=== PATIENT | female | born 2000 | race African-American/Black ===

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

== ENCOUNTER 2023-03-06 16:08 | Emergency (ER) | payer MEDICAID, OTHER ==
[~2023-03-06] VITALS: Ht 162.6 cm; Wt 75.0 kg
[2023-03-06 16:24] VITALS: BP 129/83; PULSE 100; RESP 18; TEMP 98.1; O2SAT 100
[2023-03-06 17:10] LABS: CLARITY URINE CLEAR (CLEAR); COLOR URINE YELLOW (YELLOW); GLUCOSE URINE NEGATIVE (NEGATIVE); KETONES URINE 1+ (NEGATIVE); LEUKOCYTE ESTERASE URINE NEGATIVE (NEGATIVE); NITRITE URINE NEGATIVE (NEGATIVE); OCCULT BLOOD URINE NEGATIVE (NEGATIVE); PH URINE 5.5 (4.5-8.0); PROTEIN URINE TRACE (NEGATIVE); SPECIFIC GRAVITY URINE 1.033 (1.005-1.030)
[2023-03-06 17:31] LABS: BACTERIA URINE 2+; MUCUS URINE 1+ /lpf (< = 2+); RBC URINE 0-2 /hpf (0-2); SQUAMOUS EPITHELIAL CELL URINE 1+ /lpf (RARE/1+); WBC URINE 0-2 /hpf (0-2)
[2023-03-06] MEDS ORDERED: DOXY100T2 MT (18:12)
[2023-03-06] MEDS ORDERED: CEFTRIAXONE SODIUM 1 G/VIAL IM ONE (18:15)
== END 2023-03-06 19:12 | disposition home or self-care (01) ==
LOC: ER 16:08
DX: R30.0 Dysuria (principal); F41.9 Anxiety disorder, unspecified
CPT/HCPCS: 81003; 81025; 96372; 99283; J0696; Z7610

== ENCOUNTER 2024-04-28 14:13 | Emergency (ER) | payer MEDICAID, OTHER ==
[~2024-04-28] VITALS: Ht 162.6 cm; Wt 77.1 kg
[~2024-04-28 14:13] MED LIST: DOXY100T2 MT
[2024-04-28 14:25] VITALS: O2SAT 100
[2024-04-28 15:40] LABS: CLARITY URINE CLEAR (CLEAR); COLOR URINE YELLOW (YELLOW); GLUCOSE URINE NEGATIVE (NEGATIVE); KETONES URINE NEGATIVE (NEGATIVE); LEUKOCYTE ESTERASE URINE 1+ (NEGATIVE); NITRITE URINE NEGATIVE (NEGATIVE); OCCULT BLOOD URINE NEGATIVE (NEGATIVE); PROTEIN URINE NEGATIVE (NEGATIVE); SPECIFIC GRAVITY URINE 1.021 (1.005-1.030)
[2024-04-28] MEDS ORDERED: NITR-87 MT (16:09)
[2024-04-28 16:40] LABS: BACTERIA URINE 2+; RBC URINE 0-2 /hpf (0-2); SQUAMOUS EPITHELIAL CELL URINE 1+ /lpf (RARE/1+)
[2024-04-28 16:42] VITALS: BP 137/71; PULSE 68; RESP 18; TEMP 37.2; O2SAT 98
== END 2024-04-28 16:43 | disposition home or self-care (01) ==
LOC: ER 14:43
DX: N39.0 Urinary tract infection, site not specified (principal); F41.9 Anxiety disorder, unspecified
CPT/HCPCS: 81003; 81025; 99283